=== PATIENT | male | born 1950 | race Caucasian/White ===

== ENCOUNTER → 2017-01-31 | Outpatient (CLI) | payer MEDICARE ==
[2014-12-08 21:30] VITALS: BP 135/83
[~2017-01-31] MED LIST: ASPI-482 PO
--- NOTE | 2017-01-31 14:22 | RAD ---
EXAM: CT of the chest without intravenous contrast. HISTORY: Pulmonary nodule follow-up. TECHNIQUE: Computed tomography of the chest was performed without intravenous contrast. COMPARISON: 12/08/2014. FINDINGS: Images of the upper abdomen reveal changes of cholecystectomy. Bone windows reveal no suspicious lesions. There is a chronic superiorly compression deformity at T8. A low right paratracheal lymph node measures 2.2 x 1.3 cm. There is pleural thickening on the right greater than left without a clear effusion. There is no pericardial effusion. The heart is not enlarged. There are changes of coronary artery bypass grafting. There is a region of consolidation and scarring in the right upper lobe suggesting developing rounded atelectasis. This is unchanged. There are lesser similar changes elsewhere. Groundglass opacity and septal line thickening is seen in the bases. IMPRESSION: 1. Subpleural scarring and architectural distortion in the right greater than left upper lobes is unchanged. There is interstitial lung disease in the bases with a component of groundglass opacity. There is no clear cystic change. Correlate for nonspecific interstitial pneumonia or other causes of interstitial lung disease. *One or more of the following individualized dose reduction techniques were utilized for this examination: 1. Automated exposure control. 2. Adjustment of the mA and/or kV according to patient size. 3. Use of iterative reconstruction technique.
== END | disposition home or self-care (01) ==
LOC: CT 13:38
PROVIDERS: ATTEND Physician Assistant
DX: J84.9 Interstitial pulmonary disease, unspecified (principal); Z87.898 Personal history of other specified conditions
CPT/HCPCS: 71250

== ENCOUNTER → 2017-02-04 | Outpatient (CLI) | payer MEDICARE ==
[2014-12-08 21:30] VITALS: BP 135/83
--- NOTE | 2017-02-05 13:24 | SLEEP ---
DATE OF STUDY: 02/05/2017 REFERRING PERSON: CAROLANN Quijano. The patient is 66 years old who weighs 225 pounds with a BMI of 31. The patient's Nahma score was 7. Home sleep study was performed by [facility]. The total recording time was 462 minutes. During the night study, the patient had no central mixed apneas. There were 11 obstructive apneas and 14 hypopneas. The patient's apnea hypopnea index was 3 per hour with a supine index of 2 per hour. Review of nocturnal oximetry study revealed an average oxygen saturation of 92%, with the lowest of 87%. Only 4 minutes were spent in oxygen saturation less than 90%. Mean heart rate was 59 beats per minute. IMPRESSION: 1. No clinically significant sleep disorder breathing. 2. No clinically significant nocturnal hypoxia. RECOMMENDATIONS: 1. If clinical suspicion for sleep apnea is high, then consider doing full polysomnogram. 2. Weight loss is advised. 3. Avoid [employer] depressants. FABIEN SADLER MD DR: KYLE/екатерина JOB#: [id number] / [id number] ZAINAB Ordonez
== END | disposition home or self-care (01) ==
LOC: RT 12:10
PROVIDERS: ATTEND Physician Assistant
DX: G47.33 Obstructive sleep apnea (adult) (pediatric) (principal)
CPT/HCPCS: G0399

== ENCOUNTER → 2021-08-10 | Outpatient (CLI) | payer MEDICARE ==
[2014-12-08 21:30] VITALS: BP 135/83
--- NOTE | 2021-08-10 10:28 | RAD ---
Ultrasound evaluation, abdominal aorta CLINICAL HISTORY: SCREENING FOR AAA COMPARISON: CT of the abdomen and pelvis December 08, 2014. TECHNIQUE: The abdominal aorta was examined from the diaphragm to the proximal common iliac arteries. FINDINGS: Proximal abdominal aorta maximal diameter: 2.5 Mid abdominal aorta maximal diameter: 2.2 Distal abdominal aorta maximal diameter: 1.9 Incidentally noted is very poorly occluded superior left renal cyst. Visualized portions of the common iliac arteries are nonaneurysmal. IMPRESSION: 1.No evidence of abdominal aortic aneurysm. 2. 9.7 cm left renal cyst Recommended imaging follow-up intervals for enlarged infrarenal abdominal aorta: Less than 2.5 cm: 5-year interval 3.0-3.4 cm: 3-year interval 3.5-3.9 cm: 2-year interval 4.0-4.4 cm: 1-year interval 4.5-4.9 cm: 6-month interval, vascular surgery consultation 5.0-5.5 cm: Vascular surgery consultation Electronically signed by: Kaleb Cummings MD (08/10/2021 10:26 AM) [id number]
== END ==
LOC: US 08:39
PROVIDERS: ATTEND Family Medicine
DX: Z13.6 Encounter for screening for cardiovascular disorders (principal); N28.1 Cyst of kidney, acquired
CPT/HCPCS: 76770